=== PATIENT | female | born 1990 ===

== ENCOUNTER 2023-10-14 13:48 | Outpatient (CLI) | payer OTHER ==
[2023-10-14] MEDS ORDERED: GADOTERATE MEGLUMINE 7.5 MMOL/15 ML VIAL ONE (14:14)
[2023-10-14] MEDS: GADOTERATE MEGLUMINE 7.5 MMOL/15 ML VIAL IVP ONE (15:25)
--- NOTE | 2023-10-16 16:55 | MRI Report ---
PROCEDURE: Brain W/WO INDICATIONS: HYPERPROLACINEMIA CONTRAST: CLARISCAN 10.4 ML TECHNIQUE: Noncontrast sagittal and axial FLAIR, axial gradient echo, axial diffusion and ADC through the brain. Thin-slice sagittal and coronal T1 spin echo, coronal T2 fast spin echo through the pituitary. Aft er the administration contrast, optional dynamic coronal T1 spin echo, thin-slice coronal and sagitta l T1 spin echo images through the pituitary fossa; axial T1 spin echo with fat saturation through the brain. COMPARISON: None. FINDINGS: Image quality: Excellent. Pituitary Gland: The pituitary gland demonstrates overall mildly prominent size. A normal-appearing posterior pituitary T1 hyperintense bright spot is seen. With administration of contrast, the pituita ry demonstrates normal-appearing, homogeneous contrast enhancement, without hyperenhancing or hypoenh ancing lesions seen within it to suggest pituitary masses. The pituitary stalk is midline and demonst rates no abnormal enhancement. The optic chiasm and the ventral forebrain demonstrate an unremarkable appearance. CSF Spaces: Ventricles are normal in size and shape. Basal cisterns are patent. No extra-axial flu id collections. Brain: No intracranial bleeds or mass effects. No abnormal intracranial enhancement. Preston-white ma tter interface is intact. Diffusion weighted images demonstrate no acute ischemic insults. Brainste m is normal. Normal intravascular flow voids are present. Skull and face: Calvarial marrow is normal in signal. Orbits appear normal. Sinuses: Sinuses and mastoids are clear. IMPRESSION: Prominent size of the pituitary, yet without focal masses or abnormal enhancement seen. Reviewed by: Cristiano Santiago MD on 10/16/2023 3:53 PM AKDT Approved by: Cristiano Santiago MD on 10/16/2023 3:53 PM AKDT Station ID: [id number]
== END 2023-10-14 13:49 | disposition home or self-care (01) ==
LOC: DI 13:48
PROVIDERS: ATTEND Nurse Practitioner Family
DX: Z09 Encounter for follow-up examination after completed treatment for conditions other than malignant neoplasm (principal); E22.1 Hyperprolactinemia